=== PATIENT | female | born 1975 | race Caucasian/White ===

== ENCOUNTER → 2016-09-25 | Outpatient (CLI) | payer OTHER ==
--- NOTE | 2016-09-25 11:22 | ECHOF ---
Referral Reason:R94.31 abn ekg MEASUREMENTS -------- HEIGHT: 162.6 cm WEIGHT: 113.4 kg BP: RVIDd: 2.7 cm (< 3.3) IVSd: 1.0 cm (0.6 - 1.1) LVIDd: 4.5 cm (3.9 - 5.3) LVPWd: 1.0 cm (0.6 - 1.1) IVSs: 1.2 cm LVIDs: 3.2 cm LVPWs: 1.1 cm LA Diam: 3.4 cm (2.7 - 3.8) Ao Diam: 2.7 cm (2.0 - 3.7) AV Cusp: 2.0 cm (1.5 - 2.6) LA Diam: 3.3 cm (2.7 - 3.8) MV EXCURSION: 21.150 mm (> 18.000) MV EF SLOPE: 120 mm/s (70 - 150) EPSS: 0.2 cm MV E Igor: 0.94 m/s MV DecT: 118 ms MV A Igor: 0.74 m/s MV E/A Ratio: 1.27 RAP: 5.00 mmHg RVSP: 14.34 mmHg FINDINGS -------- Sinus rhythm. This was a technically adequate study. Morbid Obesity LV size, wall thickness and systolic function are normal, with an EF greater than 55%. The right ventricle is normal in size. The left atrial size is normal. The right atrial size is normal. There is mild aortic valve sclerosis. There is no evidence of aortic regurgitation. Mild mitral annular calcification present. Mild mitral regurgitation is present. Mild tricuspid regurgitation present. There is no evidence of pulmonary hypertension. The right ventricular systolic pressure, as measured by Doppler, is 14.34mmHg. There is no pulmonic regurgitation present. The aortic root size is normal. There is a trivial pericardial effusion present. CONCLUSIONS -------- 1. LV size, wall thickness and systolic function are normal, with an EF greater than 55%. 2. There is mild aortic valve sclerosis. 3. Mild mitral annular calcification present. 4. Mild mitral regurgitation is present. 5. Mild tricuspid regurgitation present. 6. There is no evidence of pulmonary hypertension. 7. The right ventricular systolic pressure, as measured by Doppler, is 14.34mmHg. SHOP FITTER: Pilar Sims RDCS
--- NOTE | 2016-09-25 11:44 | ECHOS ---
DATE OF SERVICE: 09/25/2016 AGE: 40Y SEX: F HT: 64" WT: 250 lbs. Protocol Brant: X Others: Stress Echo Stage: 2 Dur. of Exercise: 5:00 *Heart Rate Blood Pressure *Rest: 93 Rest: 106/60 * *Max. Achieved: 174 Maximum BP: 206/94 85% PMHR: 154 100% PMHR: 181 *METS: 6.4 INDICATIONS: Abnormal EKG. MEDICATIONS: - Mrs. Peres is a 40-year-old female being evaluated for cardiac status because of abnormal EKG. Baseline EKG showed a sinus rhythm with a right bundle branch block and diffuse T-wave inversion in the anterior lateral leads. Blood pressure at rest is 106/60, pulse rate is 93. Patient walked on the Brant protocol for about 5 minutes achieving a maximum heart rate of 174 with a blood pressure of 206/94. EKGs taken during the exercise showed more pronounced ST-T changes in the anterolateral leads, which are felt to be nonspecific because of baseline EKG abnormalities. Patient did not experience any chest pain. ECHO DATA: Baseline echo images show normal wall motion and thickening. Exercise echo images showed augmentation of the wall motion and thickening in all the segments. FINAL IMPRESSION: 1. Nondiagnostic stress test because of baseline EKG abnormalities. 2. Negative stress echo.
== END | disposition home or self-care (01) ==
LOC: RADNMMAIN 09:42
PROVIDERS: ATTEND Family Medicine
DX: I08.1 Rheumatic disorders of both mitral and tricuspid valves (principal); I70.0 Atherosclerosis of aorta; R94.31 Abnormal electrocardiogram [ECG] [EKG]
CPT/HCPCS: 93017; 93306; 93350

== ENCOUNTER 2018-04-24 21:47 | Emergency (ER) | payer OTHER ==
[2018-04-24] MEDS ORDERED: cefTRIAXone 250 MG VIAL IM STA (22:16)
[2018-04-24] MEDS ORDERED: methylPREDNISolone SOD SUCCI 125 MG/2 ML VIAL IM ONE (22:16)
[2018-04-24] MEDS ORDERED: ACETAMINOPHEN TAB 500 MG TAB PO STA (22:17)
[2018-04-24] MEDS ORDERED: IBUPROFEN 600 MG TAB PO STA (22:17)
--- NOTE | 2018-04-24 23:02 | ED ---
ENT HPI - General Chief complaint: ENT Stated complaint: Throat Pain Time Seen by Provider: 04/24/18 21:58 Source: patient, RN notes reviewed, old records reviewed Mode of arrival: ambulatory Limitations: no limitations - History of Present Illness Initial comments: Patient is a 42-year-old female presents emergency room surgically of sore throat the past 3 days. Patient reports that she's had fevers and chills. No history of sick contacts that she is aware. She states she has been having difficulty time swallowing due to the pain. She is able to breathe without difficulty. No significant coughing. - Related Data Previous Rx's Medication Instructions Recorded Amoxicillin/Potassium Clav 1 tab PO BID #20 tab 04/24/18 [Augmentin 875-125 Tablet] methylPREDNISolone Dose Pack 4 mg PO DIRECTED #21 package 04/24/18 [Medrol Dose Pack] Allergies Allergy/AdvReac Type Severity Reaction Status Date / Time No Known Allergies Allergy Verified 04/24/18 21:50 Review of Systems ROS Statement: Those systems with pertinent positive or pertinent negative responses have been documented in the HPI. ROS Other: All systems not noted in ROS Statement are negative. Past Medical History Past Medical History: Pulmonary Embolus (PE) History of Any Multi-Drug Resistant Organisms: None Reported Past Surgical History: Section, Cholecystectomy Past Psychological History: No Psychological Hx Reported Smoking Status: Never smoker Past Alcohol Use History: None Reported Past Drug Use History: None Reported General Exam - General Exam Comments Initial Comments: This patient's a 42-year-old female. Alert. No significant distress. Limitations: no limitations Head exam: Present: atraumatic, normocephalic, normal inspection Eye exam: Present: normal appearance, PERRL, EOMI. Absent: scleral icterus, conjunctival injection, periorbital swelling ENT exam: Present: normal exam, mucous membranes moist. Absent: normal oropharynx (Patient is a edematous oropharynx with erythema. There is evidence of exudates.) Neck exam: Present: normal inspection. Absent: tenderness, meningismus, lymphadenopathy Respiratory exam: Present: normal lung sounds bilaterally. Absent: respiratory distress, wheezes, rales, rhonchi, stridor Cardiovascular Exam: Present: regular rate, normal rhythm, normal heart sounds. Absent: systolic murmur, diastolic murmur, rubs, gallop, clicks GI/Abdominal exam: Present: soft, normal bowel sounds. Absent: distended, tenderness, guarding, rebound, rigid Extremities exam: Present: normal inspection, full ROM, normal capillary refill. Absent: tenderness, pedal edema, joint swelling, calf tenderness Back exam: Present: normal inspection Neurological exam: Present: alert, oriented X3, CN II-XII intact Psychiatric exam: Present: normal affect, normal mood Course Vital Signs 04/24/18 04/24/18 21:48 23:12 Temperature 99.6 F 99.0 F Pulse Rate 115 H 100 Respiratory 18 20 Rate Blood Pressure 126/71 130/80 O2 Sat by Pulse 96 98 Oximetry Medical Decision Making - Medical Decision Making Patient's 42-year-old female present . No sore throat. She is having a difficult time swallowing due to the pain. She is able to swallow pills without difficulty. Patient was given Motrin Tylenol for pain. Patient has no evidence of tonsillar abscess. She does have significant edema bilateral tonsils. Patient this time is advised to take Motrin Tylenol for fever and pain. Rapid strep is negative Nicki pending for culture. Started the Patient on IM Solu-Medrol and swelling of her tonsils. Discussed return parameters and following up with primary care physician. Patient started on augmentin. - Lab Data Lab Results 04/24/18 Range/Units 22:21 Group A Strep Rapid Negative (Negative) Disposition Clinical Impression: Pharyngitis Disposition: HOME SELF-CARE Condition: Good Instructions: Pharyngitis (ED) Additional Instructions: Patient advised to take the medication as prescribed. Follow-up with primary care physician. Return to emergency department if any alarming signs or symptoms occur. Prescriptions: Amoxicillin/Potassium Clav [Augmentin 875-125 Tablet] 1 tab PO BID #20 tab methylPREDNISolone Dose Pack [Medrol Dose Pack] 4 mg PO DIRECTED #21 package Is patient prescribed a controlled substance at d/c from ED?: No Referrals: Marie Wing MD [Primary Care Provider] - 1-2 days Time of Disposition: 22:58
[2018-04-24 23:13] VITALS: BP 130/80; PULSE 100; RESP 20; TEMP 99
== END 2018-04-24 23:12 | disposition home or self-care (01) ==
LOC: EC 21:47
DX: J02.9 Acute pharyngitis, unspecified (principal)
CPT/HCPCS: 87081; 87430; 99284; 96372 ×2; J2930; J0696

== ENCOUNTER 2018-12-24 17:24 | Emergency (ER) | payer OTHER ==
[2018-12-24 17:29] VITALS: BP 128/70; PULSE 72; RESP 20; TEMP 97.6
[2018-12-24 18:16] LABS: Amorphous Sediment,Urine Rare /hpf; Appearance,Urine Clear (Clear); Bilirubin,Urine Negative (Negative); Blood,Urine Negative (Negative); Color,Urine Yellow; Glucose,Urine (UA) Negative (Negative); Ketones,Urine Negative (Negative); Leukocyte Esterase,Urine Trace (Negative); Mucus,Urine Few /hpf; Nitrite,Urine Negative (Negative); PH, Urine 5.5 (5.0-8.0); Protein,Urine Negative (Negative); RBC,Urine 2 /hpf (0-5); Specific Gravity,Urine 1.022 (1.001-1.035); Squamous Epithelial Cell,Urine 5 /hpf (0-4); Urobilinogen,Urine <2.0 mg/dL (<2.0); WBC,Urine 4 /hpf (0-5)
[2018-12-24 18:21] LABS: Glucose,Whole Blood 85 mg/dL (75-99)
--- NOTE | 2018-12-24 19:07 | ED ---
Abdominal Pain HPI - General Chief Complaint: Abdominal Pain Stated Complaint: poss bladder infection Time Seen by Provider: 12/24/18 17:48 Source: patient Mode of arrival: ambulatory Limitations: no limitations - History of Present Illness Initial Comments: 43-year-old female presenting today for chief complaint of possible bladder infection. Patient states she's had dysuria urgency frequency for the past 2-3 days. Patient denies hematuria. Patient was concerned she had a bladder infection and presented for evaluation. Patient states she has some lower mid abdominal discomfort. Patient denies any flank pain. Patient denies any nausea vomiting fever or chills night sweats. Upon arrival patient appears nontoxic. VS within acceptable limits. - Related Data Previous Rx's Medication Instructions Recorded Amoxicillin/Potassium Clav 1 tab PO BID #20 tab 04/24/18 [Augmentin 875-125 Tablet] methylPREDNISolone Dose Pack 4 mg PO DIRECTED #21 package 04/24/18 [Medrol Dose Pack] Sulfamethox-Tmp 800-160Mg [Bactrim 1 tab PO Q12HR 3 Days #6 tab 12/24/18 DS 800-160 mg] Allergies Allergy/AdvReac Type Severity Reaction Status Date / Time No Known Allergies Allergy Verified 12/24/18 17:29 Review of Systems ROS Statement: Those systems with pertinent positive or pertinent negative responses have been documented in the HPI. ROS Other: All systems not noted in ROS Statement are negative. Past Medical History Past Medical History: Pulmonary Embolus (PE) History of Any Multi-Drug Resistant Organisms: None Reported Past Surgical History: Section, Cholecystectomy Past Psychological History: No Psychological Hx Reported Smoking Status: Never smoker Past Alcohol Use History: None Reported Past Drug Use History: None Reported General Exam - General Exam Comments Initial Comments: General: The patient is awake and alert, in no distress, and does not appear acutely ill. Eye: Pupils are equal, round and reactive to light, extra-ocular movements are intact. No nystagmus. There is normal conjunctiva bilaterally. No signs of icterus. Ears, nose, mouth and throat: There are moist mucous membranes and no oral lesions. Neck: The neck is supple, there is no tenderness or JVD. Cardiovascular: There is a regular rate and rhythm. No murmur, rub or gallop is appreciated. Respiratory: Lungs are clear to auscultation, respirations are non-labored, breath sounds are equal. No wheezes, stridor, rales, or rhonchi. Gastrointestinal: Soft, non-distended, non-tender abdomen without masses or organomegaly noted. There is no rebound or guarding present. No CVA tenderness. Bowel sounds are unremarkable. Musculoskeletal: Normal ROM, no tenderness. Strength 5/5. Sensation intact. Pulses equal bilaterally 2+. Neurological: A&O x 3. CN II-XII intact, There are no obvious motor or sensory deficits. Coordination appears grossly intact. Speech is normal. Skin: Skin is warm and dry and no rashes or lesions are noted. Psychiatric: Cooperative, appropriate mood & affect, normal judgment. Limitations: no limitations Course Vital Signs 12/24/18 17:27 Temperature 97.6 F Pulse Rate 72 Respiratory 20 Rate Blood Pressure 128/70 O2 Sat by Pulse 96 Oximetry Medical Decision Making - Medical Decision Making 43-year-old female presenting for possible bladder infection. Admits to dysuria urgency frequency. No hematuria/flank pain. Patient stated that symptoms were identical to when she's had a urinary tract infection in the past. Patient appears well and nontoxic. Small amount leukocyte esterase in urine. Blood glucose WNL. Pt will be treated given symptomatic. Return parameters were discussed at length the patient who verbalizes understanding. Case discussed with attending Dr. Thapa prior to discharge. - Lab Data Lab Results 12/24/18 12/24/18 12/24/18 Range/Units 18:02 18:02 18:19 POC Glucose (mg/dL) 85 (75-99) mg/dL POC Glu Tooling Engineer ID [place] Rushing Urine Color Yellow Urine Appearance Clear (Clear) Urine pH 5.5 (5.0-8.0) Ur Specific [place] 1.022 (1.001-1.035) Urine Protein Negative (Negative) Urine Glucose (UA) Negative (Negative) Urine Ketones Negative (Negative) Urine Blood Negative (Negative) Urine Nitrite Negative (Negative) Urine Bilirubin Negative (Negative) Urine Urobilinogen <2.0 (<2.0) mg/dL Ur Leukocyte Esterase Trace H (Negative) Urine RBC 2 (0-5) /hpf Urine WBC 4 (0-5) /hpf Ur Squamous Epith Cells 5 H (0-4) /hpf Amorphous Sediment Rare H (None) /hpf Urine Mucus Few H (None) /hpf Urine HCG, Qual Not Detected (Not Detectd) Disposition Clinical Impression: UTI (urinary tract infection) Disposition: HOME SELF-CARE Condition: Good Additional Instructions: Please use medication as discussed. Please follow-up with family doctor in the next 2 days of symptoms have not improved. Please return to emergency room if the symptoms increase or worsen or for any other concerns. Prescriptions: Sulfamethox-Tmp 800-160Mg [Bactrim DS 800-160 mg] 1 tab PO Q12HR 3 Days #6 tab Is patient prescribed a controlled substance at d/c from ED?: No Referrals: Marie Wing MD [Primary Care Provider] - 1-2 days Time of Disposition: 18:45
== END 2018-12-24 19:38 | disposition home or self-care (01) ==
LOC: EC 17:24
DX: N39.0 Urinary tract infection, site not specified (principal); R10.30 Lower abdominal pain, unspecified; Z86.718 Personal history of other venous thrombosis and embolism; Z90.49 Acquired absence of other specified parts of digestive tract
CPT/HCPCS: 36415; 81001; 81025; 99284

== ENCOUNTER → 2021-01-30 | Outpatient (CLI) | payer OTHER ==
--- NOTE | 2021-02-04 07:56 | MM ---
Reason for exam: screening (asymptomatic). Last mammogram was performed 3 years and 6 months ago. History: Family history of breast cancer in maternal aunt at age 30. Physical Findings: A clinical breast exam by your physician is recommended on an annual basis and results should be correlated with mammographic findings. MG Screening Mammo w CAD Bilateral CC and MLO view(s) were taken. Prior study comparison: August 07, 2017, bilateral MG screening mammo w CAD. There are scattered fibroglandular densities. ASSESSMENT: Benign, BI-RAD 2 RECOMMENDATION: Routine screening mammogram of both breasts in 1 year.
== END | disposition home or self-care (01) ==
LOC: RADMAMWWP 16:09
PROVIDERS: ATTEND Family Medicine
DX: Z12.31 Encounter for screening mammogram for malignant neoplasm of breast (principal); Z80.3 Family history of malignant neoplasm of breast
CPT/HCPCS: 77067

== ENCOUNTER 2021-02-08 11:47 | Day surgery (SDC) | payer OTHER ==
[2021-02-07 08:29] VITALS: BMI 44.6
[~2021-02-08 11:47] MED LIST: LACTATED RINGERS 1,000 ML IV SCH
[2021-02-08 12:17] VITALS: TEMP 97.9
[2021-02-08] MEDS ORDERED: LIDOCAINE 1% (10MG/ML) FOR IV START INTRADERMA ONE (12:29)
[2021-02-08] MEDS ORDERED: MIDAZOLAM 2 MG/2 ML VIAL ONE (12:43)
[2021-02-08] MEDS ORDERED: PROPOFOL 10 MG/ML 20 ML VIAL IV ONE (12:43)
--- NOTE | 2021-02-08 12:55 | P.PCN ---
Date of Procedure: 02/08/21 Procedure(s) Performed: BRIEF HISTORY: Patient is a 45-year-old pleasant white female scheduled for an elective colonoscopy as a part of evaluation of Hemoccult-positive stool. PROCEDURE PERFORMED: Colonoscopy. PREOPERATIVE DIAGNOSIS: Hemoccult-positive stool. IV sedation per Anesthesia. PROCEDURE: After informed consent was obtained, the patient, was brought into the endoscopy unit. IV sedation was administered by Anesthesia under continuous monitoring. Digital rectal examination was normal. Initially the Olympus CF-160 flexible video colonoscope was then inserted in the rectum, gradually advanced into the cecum without any difficulty. Careful examination was performed as the scope was gradually being withdrawn. Ileocecal valve and the appendiceal orifice were visualized and appeared normal. Prep was fair.. Mucosa of the cecum, ascending colon, transverse colon, descending colon, sigmoid colon, and rectum appeared normal. Retroflexion was performed in the rectum and no lesions were seen. The patient tolerated the procedure well. IMPRESSION: Normal-appearing colon from rectum to cecum with no evidence of colorectal neoplasia. RECOMMENDATIONS: Findings of this examination were discussed with the patient as well as a family. She was advised to have a repeat screening colonoscopy in 10 years.
[2021-02-08 13:10] VITALS: RESP 20
[2021-02-08 13:36] VITALS: BP 107/76; PULSE 90
== END 2021-02-08 13:39 | disposition home or self-care (01) ==
LOC: ORWHC2ENDO 11:47
PROVIDERS: ATTEND Internal Medicine Gastroenterology
DX: R19.5 Other fecal abnormalities (principal); Z86.718 Personal history of other venous thrombosis and embolism; Z86.711 Personal history of pulmonary embolism
CPT/HCPCS: 81025; 45378; J2250; J2704

== ENCOUNTER → 2022-03-07 | Outpatient (CLI) | payer OTHER ==
--- NOTE | 2022-03-07 19:00 | CA ---
Transthoracic Echo Report Name: Geni Anna Age: 46 Gender: F : 1975 Exam Date: 03/07/2022 15:48 Exam Location: [facility] Ht (in): 64 Wt (lb): 280 Ordering Physician: Marie Wing MD Attending/Referring Phys: Head Chef Anabel Escalona RDCS Procedure CPT: Indications: R60 Edema Cardiac Hx: Technical Quality: Fair Contrast 1: Total Dose (mL): Contrast 2: Total Dose (mL): MEASUREMENTS (Male / Female) Normal Values 2D ECHO LV Diastolic Diameter PLAX 3.9 cm 4.2 - 5.9 / 3.9 - 5.3 cm LV Systolic Diameter PLAX 2.8 cm IVS Diastolic Thickness 0.9 cm 0.6 - 1.0 / 0.6 - 0.9 cm LVPW Diastolic Thickness 1.1 cm 0.6 - 1.0 / 0.6 - 0.9 cm LV Relative Wall Thickness 0.5 RV Internal Dim ED PLAX 2.2 cm M-MODE Aortic Root Diameter MM 2.9 cm LA Systolic Diameter MM 2.7 cm LA Ao Ratio MM 1.0 MV E Point Septal Separation 1.3 cm AV Cusp Separation MM 2.0 cm DOPPLER AV Peak Velocity 124.1 cm/s AV Peak Gradient 6.2 mmHg MV Area PHT 3.3 cm??? MR Peak Velocity 131.8 cm/s MR Peak Gradient 7.0 mmHg Mitral E Point Velocity 105.8 cm/s Mitral A Point Velocity 39.5 cm/s Mitral E to A Ratio 2.7 MV Deceleration Time 230.9 ms MV E' Velocity 10.0 cm/s Mitral E to MV E' Ratio 10.5 TR Peak Velocity 113.4 cm/s TR Peak Gradient 5.1 mmHg Right Ventricular Systolic Press 10.0 mmHg PV Peak Velocity 99.1 cm/s PV Peak Gradient 3.9 mmHg FINDINGS Left Ventricle Mildly increased posterior wall thickness. Left ventricular ejection fraction is estimated at 55-60_%. Left ventricular cavity size normal. Right Ventricle The right ventricle is normal in size and function. Right Atrium The right atrium is normal in size. Left Atrium The left atrium is normal in size. Mitral Valve Structurally normal mitral valve without significant stenosis or prolapse. There is trace mitral regurgitation. Aortic Valve Structurally normal aortic valve without significant sclerosis or stenosis. There is no aortic regurgitation. Tricuspid Valve Structurally normal tricuspid valve without significant stenosis. Pulmonary artery systolic pressure is normal. Trace tricuspid regurgitation. Pulmonic Valve Structurally normal pulmonic valve without significant stenosis. There is no pulmonic regurgitation. Pericardium Normal pericardium without effusion. Aorta Normal aortic root dimension. CONCLUSIONS Normal left ventricular dimension and systolic function Previewed by: Dr. Panfilo Juarez MD (Electronically Signed) Final Date: 07 March 2022 18:58
== END | disposition home or self-care (01) ==
LOC: RADECHMAIN 15:39
PROVIDERS: ATTEND Family Medicine
DX: I08.1 Rheumatic disorders of both mitral and tricuspid valves (principal)
CPT/HCPCS: 93306